=== PATIENT | male | born 1960 | race Caucasian/White ===

== ENCOUNTER → 2017-11-24 12:45 | Outpatient (CLI) | payer BC, SELFPAY ==
--- NOTE | 2017-11-24 12:53 | CT_ITS ---
EXAM: CT LUNG LOW DOSE WO CONTRAST COMPARISON: 11/11/2011 HISTORY: 57-year-old male with 30 pack-year smoking history asymptomatic ORDERING PHYSICIAN: Pavel Rios MD PATIENT AGE: 57 years TECHNIQUE: The exam was performed on a GE Light Speed [address] scanner using 2.95 mGy CTDI. A low dose helical CT CHEST was performed on a multi-detector scanner The LDCT was performed in a facility that meets the criteria for the screening program. Data regarding this exam was submitted to ACR which is an approved registry. The order for this exam indicates that it came as a result of a lung cancer screening counseling shard decision-making visit that included all the elements required of such a visit including smoking cessation. The radiologist interpreting this exam meets the [facility] criteria for the LDCT lung cancer screening program. The exam is reported using the Lung-RADS classification scale and reported to the ACR registry. NOTE: This study was performed for the specific purposes of lung cancer screening and is not an alternative to diagnostic chest CT. RADIATION DOSE: CTDI vol(CT dose Index-volume) = 2.95mG DLP (Dose Length Product) = 116.56 mGcm FINDINGS: 4 mm right apical nodule unchanged, 4 mm nodule right upper lobe anteriorly unchanged, 4 mm nodule central right upper lobe anteriorly unchanged, 4 mm subpleural nodule right middle lobe laterally unchanged. 3 mm nodules in the left upper lobe unchanged, 3 mm nodule left upper lobe laterally unchanged, 3 mm nodule left upper lobe centrally unchanged, 4 mm nodule left lower lobe anteriorly unchanged. No new nodules evident. Upper abdominal images show cholelithiasis IMPRESSION: 1. Lung RADS Category: 2, benign 2. Other findings: Cholelithiasis RECOMMENDATIONS: 12 month screening LDCT
== END ==
PROVIDERS: Family Provider Family Medicine; PCP Family Medicine; Visit Provider Family Medicine
DX: Z87.891 Personal history of nicotine dependence (principal); Z12.2 Encounter for screening for malignant neoplasm of respiratory organs

== ENCOUNTER → 2018-12-02 13:09 | Outpatient (CLI) | payer BC, SELFPAY ==
--- NOTE | 2018-12-02 13:12 | CT_ITS ---
EXAM: CT LUNG LOW DOSE WO CONTRAST COMPARISON: None HISTORY: 1 pack per day x30 years ago 30 pack-year. Currently smoking. TECHNIQUE: The exam was performed on a GE Light Speed [address] scanner using 3.0 mGy CTDI. A low dose helical CT CHEST was performed on a multi-detector scanner. All CT scans at this facility use one or more dose reduction techniques, viz.: automated exposure control, ma/kV adjustment per patient size (including targeted exams where dose is matched to indication, i.e. head) or iterative reconstruction technique. The LDCT was performed in a facility that meets the criteria for the screening program. Data regarding this exam was submitted to ACR which is an approved registry. The order for this exam indicates that it came as a result of a lung cancer screening counseling shard decision-making visit that included all the elements required of such a visit including smoking cessation. The radiologist interpreting this exam meets the [facility] criteria for the LDCT lung cancer screening program. The exam is reported using the Lung-RADS classification scale and reported to the ACR registry. NOTE: This study was performed for the specific purposes of lung cancer screening and is not an alternative to diagnostic chest CT. RADIATION DOSE: CTDI vol(CT dose Index-volume) = 2.9. MGy DLP (Dose Length Product) = 108.26 mGy-cm FINDINGS: No suspicious lung mass or nodule.. No significant changes prior study. Follow-up in 12 months recommended. Mild emphysematous changes bilaterally again noted. Minimal linear scarring at medial aspect of minor fissure and at posterior sulcus on right more than left. RIGHT LUNG ... A tiny 4 mm apical calcified granuloma axial image 19. Not of concern. ... Small barely evident less than 4 mm nodule anterior right apex axial image 28. Stable. Period can be followed. Unimpressive. ... Small 4 mm nodule anterior RUL axial image 44.-just superior to the minor fissure. This is been present since 2012 CT chest with no significant change. Supporting benign nature. Small subpleural 4 mm nodule axial image 58 appear stable . LEFT LUNG. Tiny 3 mm nodule anterior left apex stable ... Stable tiny 3 mm likely partially calcified granuloma axial slice 39 periphery L UL left midlung. .... Tiny less than 4 mm nodule at the lingula L UL axial slice 40 sagittal 75. PLEURA : Only scattered areas of scant pleural thickening and scarring Airways. Upper normal thickness centrally dictated towards infrahilar areas. MEDIASTINUM No significant hilar or mediastinal adenopathy. Small Calcified hilar nodes most evident on the left reflect granulomatous disease. The heart is normal in size. A right coronary artery calcifications and/or stent. Limited views Uppermost abdomen unremarkable today. Right lobe of thyroid may be slightly elongated. . IMPRESSION: 1. . 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 Most likely benign appearing findings Follow-up screening CT chest one year recommended. Report . RECOMMENDATIONS: 12 month monthd LDCT follow-up
== END ==
PROVIDERS: PCP Family Medicine; Visit Provider Family Medicine
DX: Z12.2 Encounter for screening for malignant neoplasm of respiratory organs (principal); Z87.891 Personal history of nicotine dependence

== ENCOUNTER → 2020-05-01 12:54 | Outpatient (POV) | payer BC, SELFPAY | PROVIDERS: Visit Provider Dermatology | DX: Z00.00 Encounter for general adult medical examination without abnormal findings (principal) ==

== ENCOUNTER → 2020-12-13 13:52 | Outpatient (CLI) | payer BC, SELFPAY ==
--- NOTE | 2020-12-13 13:57 | CT_ITS ---
PROCEDURE: CT LUNG SCREENING CLINICAL INDICATION: HX OF NICOTINE DEPENDENCE Current smoker, 1 pack per day times 30+ years COMPARISON: CT LUNGSCREEN CT lung screening from 11/24/[address] lung screening from 12/02/2018 TECHNIQUE: The exam was performed on a [employer] Light Speed [address] scanner using 2.90 mGy CTDI. A low dose helical CT CHEST was performed on a multi-detector scanner. All CT scans at the facility use one or more dose reduction, viz: automated exposure control, ma/kV adjustment per patient size (including targeted exams where dose is matched to indication, i.e. head), or iterative reconstruction technique. The LDCT was performed in a facility that meets the criteria for the screening program. Data regarding this exam was submitted to ACR which is an approved registry. The order for this exam indicates that it came as a result of a lung cancer screening counseling shard decision-making visit that included all the elements required of such a visit including smoking cessation. The radiologist interpreting this exam meets the CMS criteria for the LDCT lung cancer screening program. The exam is reported using the Lung-RADS classification scale and reported to the ACR registry. NOTE: This study was performed for the specific purposes of lung cancer screening and is not an alternative to diagnostic chest CT. RADIATION DOSE: CTDI vol(CT dose Index-volume) = 2.90mG DLP (Dose Length Product) = 116 mGcm FINDINGS: There are scattered tiny areas of architectural change. There are several tiny benign granulomas. Small pulmonary nodules are unchanged. There are no new pulmonary nodules. OTHER FINDINGS: There are scattered atherosclerotic calcifications in the coronary arteries. There is no thoracic suspicious thoracic adenopathy. Mild, approximately 10 degree, curvature of the thoracic spine which may be positional. There are scattered degenerative changes in the skeleton and scattered benign bone islands. IMPRESSION: Lung-RADS Category 2 Benign Appearance or Behavior Follow-up: CT screening chest 1 year 12 month LDCT follow-up Dictated by: Rhonda Smith MD 12/14/2020 09:15 Rhonda Smith MD in [place] 12/14/2020 09:15
== END ==
PROVIDERS: PCP Family Medicine; Visit Provider Physician Assistant
DX: Z87.891 Personal history of nicotine dependence (principal); Z12.2 Encounter for screening for malignant neoplasm of respiratory organs
CPT/HCPCS: 71271

== ENCOUNTER → 2021-01-04 13:12 | Outpatient (CLI) | payer BC, SELFPAY ==
--- NOTE | 2021-01-04 13:15 | XR_ITS ---
PROCEDURE: XR ANKLE RT MIN 3V CLINICAL INDICATION: PAIN IN RT ANKLE AND JOINT OF RT FOOT COMPARISON: No exams were available for comparison FINDINGS: There is an old distal fibular shaft fracture and suspected old distal tibial fracture is well.. Calcification is present between the distal aspect of the tibia and fibula at the area of the fracture. Severe osteoarthritic changes are present at the ankle joint. Subchondral lucency is noted at the talar dome with some cortical regularity. The lucency may be related to subchondral cystic change. There is some minimal flattening of the talar dome. IMPRESSION: Severe osteoarthritic changes of the ankle with an old distal fibular and tibial fracture Dictated by: Dakota Cardoso MD 01/04/2021 14:16 Dakota Cardoso MD in [place] 01/04/2021 14:16
== END ==
PROVIDERS: PCP Family Medicine; Visit Provider Family Medicine
DX: M25.571 Pain in right ankle and joints of right foot (principal)
CPT/HCPCS: 73610

== ENCOUNTER → 2021-01-09 14:20 | Outpatient (CLI) | payer BC, SELFPAY ==
--- NOTE | 2021-01-09 14:24 | XR_ITS ---
PROCEDURE: XR ANKLE RT MIN 3V CLINICAL INDICATION: RT ANKLE PAIN COMPARISON: CR XR ANKLE RT MIN 3V from 01/04/2021 FINDINGS: No change old right distal fibular fracture an old distal tibial fracture with calcification of the syndesmosis distally. Severe osteoarthritic changes are present involving the talar dome. No acute fracture or dislocation. There is cortical irregularity of the talar dome as previously described. IMPRESSION: Overall no change in the severe osteoarthritis of the ankle with an old distal fibular fracture and persistent subchondral lucency of the talar dome Dictated by: Dakota Cardoso MD 01/09/2021 15:37 Dakota Cardoso MD in [place] 01/09/2021 15:37
== END ==
PROVIDERS: PCP Physician Assistant; Visit Provider Physician Assistant
DX: S99.911A Unspecified injury of right ankle, initial encounter (principal)
CPT/HCPCS: 73610

== ENCOUNTER 2021-01-11 16:02 | Outpatient (RCR) | payer BC, SELFPAY | END 2021-01-11 16:48 | disposition home or self-care (01) | LOC: PT 16:02 | PROVIDERS: Visit Provider Physician Assistant | DX: M25.571 Pain in right ankle and joints of right foot (principal); M19.071 Primary osteoarthritis, right ankle and foot | CPT/HCPCS: 97760 ==

== ENCOUNTER → 2021-03-12 15:39 | Outpatient (CLI) | payer BC, SELFPAY ==
--- NOTE | 2021-03-12 15:49 | XR_ITS ---
PROCEDURE: XR ANKLE WT BEARING RT MIN 3V CLINICAL INDICATION: ankle pain COMPARISON: CR XR ANKLE RT MIN 3V from 01/04/2021 CR XR ANKLE RT MIN 3V from 01/09/2021 FINDINGS: Old distal fibular shaft fracture is once again noted with ossification of the interosseous region of the distal tib fib. Also noted cortical thickening with lobulation of the distal tibia consistent with old fracture. There are severe osteoarthritic changes the ankle with loss of joint space and osteophyte formation. Bony hypertrophic changes are present at the tarsal metatarsal junction dorsally IMPRESSION: Old distal tib fib fracture with severe osteoarthritis of the right ankle Dictated by: Dakota Cardoso MD 03/12/2021 17:15 Dakota Cardoso MD in [place] 03/12/2021 17:15
== END ==
PROVIDERS: PCP Nurse Practitioner; Visit Provider Physician Assistant
DX: M25.571 Pain in right ankle and joints of right foot (principal); M79.671 Pain in right foot
CPT/HCPCS: 73610

== ENCOUNTER → 2021-03-19 13:44 | Outpatient (CLI) | payer BC, SELFPAY ==
--- NOTE | 2021-03-19 13:49 | XR_ITS ---
PROCEDURE: XR FOOT WT BEARING LT 3V CLINICAL INDICATION: pain COMPARISON: No exams were available for comparison FINDINGS: No fracture or dislocation. No lytic or blastic change. There is normal mineralization. The joint spaces are well-preserved. No significant degenerative/arthritic changes. No erosive changes evident. Other findings:There is a small calcaneal spur along the plantar surface of the calcaneus IMPRESSION: No acute findings. Dictated by: Dakota Cardoso MD 03/19/2021 14:20 Dakota Cardoso MD in [place] 03/19/2021 14:20
--- NOTE | 2021-03-19 13:49 | XR_ITS ---
PROCEDURE: XR FOOT WT BEARING RT 3V CLINICAL INDICATION: pain COMPARISON: CR XR ANKLE WT BEARING RT MIN 3V from 03/12/2021 FINDINGS: Osteoarthritic changes are present at the ankle joint which are severe in nature. Prominent osteoarthritic changes are present at the tarsal metatarsal junction with prominent bony spurring anteriorly. At the distal aspect of the 2nd 3rd and 4th metatarsals there is some plantar and lateral angulation of the heads of the metatarsals which could be due to old fractures. No acute fracture or dislocation. IMPRESSION: Degenerative changes as described above. Possible old fractures at the heads of the 2nd 3rd and 4th metatarsals Dictated by: Dakota Cardoso MD 03/19/2021 14:20 Dakota Cardoso MD in [place] 03/19/2021 14:20
== END ==
PROVIDERS: PCP Physician Assistant; Visit Provider Podiatrist
DX: M79.672 Pain in left foot (principal); M79.671 Pain in right foot
CPT/HCPCS: 73630

== ENCOUNTER → 2021-08-12 15:21 | Outpatient (CLI) | payer BC, SELFPAY ==
--- NOTE | 2021-08-12 15:26 | XR_ITS ---
PROCEDURE: XR RIBS RT MIN 3V W CXR1V CLINICAL INDICATION: RT RIB PAIN COMPARISON: CT CT LUNG SCREENING from 12/13/2020 FINDINGS: Multiple views of the right ribs show no obvious fracture. No lytic or blastic change. Consider follow-up in 7-[address] with 3D reformats if pain persists Frontal view of the chest shows no acute finding IMPRESSION: Negative right ribs Dictated by: Dakota Cardoso MD 08/12/2021 16:09 Dakota Cardoso MD in [place] 08/12/2021 16:09
== END ==
PROVIDERS: PCP Family Medicine; Visit Provider Nurse Practitioner
DX: R07.81 Pleurodynia (principal)
CPT/HCPCS: 71101

== ENCOUNTER → 2021-10-10 14:33 | Outpatient (CLI) | payer BC, SELFPAY ==
--- NOTE | 2021-10-10 14:37 | CT_ITS ---
PROCEDURE: CT HEAD/BRAIN WO CON CLINICAL INDICATION: CONCUSSION W/ LOSS OF CONSCIOUSNESS, INITIAL ENCOUNTER COMPARISON: No exams were available for comparison TECHNIQUE: Axial images obtained. All CT scans at the facility use one or more dose reduction, viz: automated exposure control, ma/kV adjustment per patient size (including targeted exams where dose is matched to indication, i.e. head), or iterative reconstruction technique. FINDINGS: There is a nondisplaced linear skull fracture extending from the left anterior frontal bone posteriorly through the frontal and parietal bone medially with some minimal diastasis of the posterior aspect of the sagittal suture at the parietal region with a nondisplaced fracture also involving the medial aspect of the right parietal bone. There is a small amount of subarachnoid blood in the left frontal area medially best seen on image number 53 through 58 series 3. There may be a small amount of blood in the interhemispheric fissure anteriorly. No other areas of bleeding apparent. No hydrocephalus. No midline shift or mass effect. Low-density changes are present in the inferior aspect of the left frontal lobe. Some of this could be due to partial volume averaging artifact. However, underlying edema is also considered. Soft tissue swelling is present in the left frontal area IMPRESSION: Nondisplaced linear skull fracture involves the left frontal parietal and right parietal bone with minimal diastasis of the sagittal suture posteriorly Small amount subarachnoid blood in the left frontal area with questionable small amount blood in the interhemispheric fissure Suspect small amount of brain parenchymal edema in the left frontal lobe inferiorly. Dictated by: Dakota Cardoso MD 10/10/2021 15:33 Dakota Cardoso MD in [place] 10/10/2021 15:33
== END ==
PROVIDERS: PCP Physician Assistant; Visit Provider Physician Assistant
DX: S06.0X9A Concussion with loss of consciousness of unspecified duration, initial encounter (principal)
CPT/HCPCS: 70450

== ENCOUNTER → 2021-11-06 15:51 | Outpatient (CLI) | payer BC, SELFPAY ==
[2021-11-06 17:44] LABS: Adenovirus,PCR Not Detected (NotDetected); Bordetella Pertussis Not Detected (NotDetected); Chlamydophila Pneumoniae, PCR Not Detected (NotDetected); Coronavirus 229E Not Detected (NotDetected); Coronavirus NL63 Not Detected (NotDetected); Coronavirus OC43 Not Detected (NotDetected); Coronovirus HKU1,PCR Not Detected (NotDetected); Human Metapneumovirus Not Detected (NotDetected); Influenza A, PCR Not Detected (NotDetected); Influenza AH1, 2009 Not Detected (NotDetected); Influenza AH1, PCR Not Detected (NotDetected); Influenza AH3,PCR Not Detected (NotDetected); Influenza B, PCR Not Detected (NotDetected); Mycoplasma Pneumoniae, PCR Not Detected (NotDetected); Parainfluenza 1, PCR Not Detected (NotDetected); Parainfluenza 2, PCR Not Detected (NotDetected); Parainfluenza 3, PCR Not Detected (NotDetected); Parainfluenza 4, PCR Not Detected (NotDetected); Respiratory Syncytial Virus Not Detected (NotDetected); Rhinovirus/Enterovirus Not Detected (NotDetected)
[2021-11-06 18:12] LABS: Basophils % 0.7 % (0.1-2.0); Eosinophils % 0.8 % (0.1-12.0); Hematocrit 42.9 % (42.0-52.0); Hemoglobin 14.5 g/dL (14.1-18.0); Lymphocytes # 0.8 K/mm3 (0.7-4.5); Lymphocytes % 18.4 % (10-50); Mean Corpuscular HGB Conc 33.7 g/dL (31.8-35.4); Mean Corpuscular Hemoglobin 33.9 pg (27.0-31.2); Mean Corpuscular Volume 100.7 fl (80-94); Mean Platelet Volume 8.6 fl (7.4-10.4); Monocytes # 0.7 K/mm3 (0.1-1.0); Neutrophils # 2.9 K/mm3 (1.8-7.8); Neutrophils % 64.1 % (37.0-80.0); Platelet Count 313 K/mm3 (142-424); Red Blood Count 4.26 M/mm3 (4.60-6.20); White Blood Count 4.5 K/mm3 (4.8-10.8)
[2021-11-06 19:58] LABS: Coronavirus 19, PCR Detected (NotDetected)
== END ==
PROVIDERS: PCP Physician Assistant; Visit Provider Physician Assistant
DX: U07.1 COVID-19 (principal)
CPT/HCPCS: 36415; 85025; 87581; 87632; 87798; C9803; U0003; U0005

== ENCOUNTER → 2021-12-11 15:26 | Outpatient (CLI) | payer BC, SELFPAY | PROVIDERS: Visit Provider Nurse Practitioner | DX: Z20.822 Contact with and (suspected) exposure to COVID-19 (principal) | CPT/HCPCS: C9803; U0003; U0005 ==

== ENCOUNTER → 2022-01-17 13:51 | Outpatient (CLI) | payer BC, SELFPAY ==
--- NOTE | 2022-01-17 13:53 | XR_ITS ---
FINAL REPORT CLINICAL HISTORY: right ankle pain COMPARISON: March 12, 2021 FINDINGS: RIGHT ANKLE: Three views of the right ankle were obtained. There is healed fracture deformity of the distal fibula diaphysis. There is prominent periosteal reaction of the lateral aspect of the distal tibia probably due to prior trauma. There is marked narrowing of the mortise. 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 There is moderate soft tissue swelling about the ankle. IMPRESSION: Healed fracture of the distal fibula. 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 Reviewed, Interpreted and Dictated by Sesar Berrios MD Transcribed by Edgar Real Authenticated by Sesar Berrios MD on 01/17/2022 03:12:08 PM [facility]
== END ==
PROVIDERS: PCP Physician Assistant; Visit Provider Orthopaedic Surgery
DX: M25.571 Pain in right ankle and joints of right foot (principal); M25.471 Effusion, right ankle
CPT/HCPCS: 73610

== ENCOUNTER → 2022-04-07 12:54 | Outpatient (CLI) | payer BC, SELFPAY ==
--- NOTE | 2022-04-07 13:18 | XR_ITS ---
FINAL REPORT CLINICAL HISTORY: WHEEZING,COUGH COMPARISON: August 12, 2021 FINDINGS: Two views of the chest were obtained. The heart size and pulmonary vascularity are within normal limits. The mediastinum is normal. The lungs are somewhat hyperinflated consistent with COPD. There is mild bibasilar atelectasis or scarring. There is no pneumothorax. There are postoperative changes at the right humeral head. IMPRESSION: Mild bibasilar atelectasis or scarring. Reviewed, Interpreted and Dictated by Erasto Sauer III, MD Transcribed by Leah Bethea Authenticated and . [facility]
[2022-04-07 14:06] LABS: Alanine Aminotransferase 25 U/L (12-78); Albumin Level 4.2 g/dl (3.5-5.0); Albumin/Globulin Ratio 1.8 (1.1-1.8); Alkaline Phosphatase 100 U/L (38-126); Anion Gap 14.8 mEq/L (5-15); Aspartate Amino Transferase 35 U/L (17-59); Bilirubin,Total 0.7 mg/dl (0.2-1.3); Blood Urea Nitrogen 9 mg/dl (9-20); Calcium 9.3 mg/dl (8.4-10.2); Carbon Dioxide 26 mmol/L (22.0-30.0); Chloride 83 mmol/L (98-107); Estimated Glomerular Filt Rate 115 ml/min (>60); GFR (African American) 140 ML/MIN (>60); Globulin 2.4 g/dL (1.3-3.2); Glucose 101 mg/dl (74-100); Potassium 3.8 mmoL/L (3.5-5.1); Sodium 120 mmol/L (136-145); Total Protein,Serum 6.6 g/dl (6.3-8.2)
[2022-04-07 14:15] LABS: NT Pro Brain Natriuretic Pep. 47.8 pg/mL (0-125)
[2022-04-07 14:36] LABS: Prostate Specific Ag Screen 0.2 ng/ml (0.0-4.0)
== END ==
PROVIDERS: PCP Physician Assistant; Visit Provider Nurse Practitioner
DX: R06.2 Wheezing (principal); R05.9 Cough, unspecified; R60.0 Localized edema; Z12.5 Encounter for screening for malignant neoplasm of prostate
CPT/HCPCS: 36415; 71046; 80053; 83880; G0103

== ENCOUNTER → 2022-04-11 13:37 | Outpatient (CLI) | payer BC, SELFPAY ==
--- NOTE | 2022-04-11 | CA_ITS ---
APPROVED REPORT EXAM: Comprehensive 2D, Doppler, and color-flow Echocardiogram Setter Machine: Lu Pantoja CRT Ht: 6 ft 1 in Wt: 270lbs BSA: 2.44 BP: 144/84 mmHg Indications: Shortness of Breath, Obesity, Peripheral Edema, Hyperlipidemia, Hypertension/HDD 2D Dimensions Aortic Root 2.11 cm LA Volume 43.90 mL LA Volume Index 18.00 mL/m2 (M/F) 16-34 M-Mode Dimensions RVDd 2.75 cm (0.9-2.6) LA Diam 4.47 cm (1.9-4.0) LVDd 5.35 cm (3.5-5.7) Ao Diam 4.00 cm (2.0-3.7) LVDs 3.64 cm (3.5-5.7) IVSd 1.61 cm (0.6-1.1) PWd 0.74 cm (0.6-1.1) EF (Teich) 59.60% FS 32.00% EDV (Teich) 138.30 mL TAPSE 3.26 (<1.7) ESV (Teich) 55.90 mL LV Diastology E Decel Time 117.00 (160-240 msec) E/A Ratio 0.99 MED E' 8.90 (< 7 cm/sec) MED A' 11.10 cm/s E'/MED E' Ratio 9.96 (>14) LAT E' 13.40 (<10 cm/sec) LAT A' 22.20 cm/s E/LAT E' Ratio 6.61 (>14) Aortic Valve AO Peak GR. 10.80 mmHg Mitral Valve MV A Velocity 90.00 (40-130 cm/s) E/A Ratio 0.99 MV Decel. Time 117.00 (160-240 ms) Tricuspid Valve TR P. Velocity 135.00 cm/s RAP Estimate 10.00 mmHg RVSP 17.30 mmHg Left Ventricle Left atrium is normal size, left ventricle is normal size, there is no concentric left ventricular hypertrophy, estimated ejection fraction 55% with no regional wall motion abnormality, diastolic parameters are within normal range. Right Ventricle Right atrium and right ventricle are normal size and contractility. Aortic Valve Aortic valve is minimally thickened and fibrosed there is no aortic stenosis or aortic insufficiency. Mitral Valve Mitral valve grossly normal, there is trace mitral regurgitation. Tricuspid Valve Tricuspid grossly normal, there is trace tricuspid regurgitation, tricuspid regurgitation jet velocity is inadequate for calculation of the right ventricular systolic pressure. Pulmonic Valve Pulmonic valve is poorly visualized. Great Vessels Aortic root is normal size. Inferior vena cava normal size with normal inspiratory collapse. Pericardium No significant pericardial effusion noted. Conclusion 1. Normal left ventricular size preserved left ventricular systolic function, estimated ejection fraction 55% with no regional wall motion abnormality, diastolic parameters are within normal range. 2. Trace mitral and tricuspid regurgitation. 3. No significant pericardial effusion. 4. Inferior vena cava is normal size with normal inspiratory collapse. Electronically signed by : Jez Rivera MD 04/11/2022 14:50:47
== END ==
PROVIDERS: PCP Physician Assistant; Visit Provider Nurse Practitioner
DX: R60.0 Localized edema (principal)
CPT/HCPCS: 93306

== ENCOUNTER → 2022-06-04 13:49 | Outpatient (CLI) | payer BC, SELFPAY ==
--- NOTE | 2022-06-04 13:55 | CT_ITS ---
FINAL REPORT CLINICAL HISTORY: CONTUSION OF FACE. small abrasion on his forehead. COMPARISON: 10/10/2021 FINDINGS: Axial images of the head were obtained without contrast. This study was performed with techniques to keep radiation doses as low as reasonably achievable (ALARA). Individualized dose reduction techniques using automated exposure control or adjustment of mA and/or kV according to the patient's size were employed. There has been interval resolution of the right frontal subarachnoid hemorrhage. No new hemorrhage is identified. The ventricular size is within normal limits. There is no evidence of shift of the midline structures. No abnormal extra axial fluid collection is identified. Again identified is the left frontal and parietal skull fractures. The appearance of the fracture is now subacute. No new bony abnormality is identified. IMPRESSION: Interval resolution of the right frontal subarachnoid hemorrhage. Subacute left frontal and parietal skull fractures. Reviewed, Interpreted and Dictated by Erasto Sauer III, MD Transcribed by Keiko Solorio Authenticated and [facility]
--- NOTE | 2022-06-04 13:55 | CT_ITS ---
FINAL REPORT TECHNIQUE: Axial CT images of the face were obtained without contrast. Coronal reformatted images were also obtained. This study was performed with techniques to keep radiation doses as low as reasonably achievable, (ALARA). Individualized dose reduction techniques using automated exposure control or adjustment of mA and/or kV according to the patient''s size were employed. CLINICAL HISTORY: CONTUSION OF FACE FINDINGS: There is no evidence of fracture.The orbits are intact.The globes are intact. There is mucosal thickening in multiple sinuses. No soft tissue mass is seen. IMPRESSION: No fracture or acute bony abnormality identified. Reviewed, Interpreted and Dictated by Erasto Sauer III, MD Transcribed by Keiko Solorio Authenticated and [facility]
== END ==
PROVIDERS: PCP Physician Assistant; Visit Provider Family Medicine
DX: S00.83XA Contusion of other part of head, initial encounter (principal)
CPT/HCPCS: 70450; 70486

== ENCOUNTER 2022-09-05 14:28 | Outpatient (RCR) | payer BC, SELFPAY | END 2022-09-05 15:30 | disposition home or self-care (01) | LOC: PT 14:28 | PROVIDERS: Visit Provider Family Medicine | DX: M79.671 Pain in right foot (principal); S99.921D Unspecified injury of right foot, subsequent encounter | CPT/HCPCS: 97760 ==

== ENCOUNTER → 2022-11-05 12:39 | Outpatient (CLI) | payer BC, OTHER, SELFPAY ==
--- NOTE | 2022-11-05 13:18 | PC.NURSE ---
PFT completed without incident. Albuterol 0.083% given, per protocol, Pt tolerated treatment well.
== END ==
PROVIDERS: PCP Physician Assistant; Visit Provider Physician Assistant
DX: R05.3 Chronic cough (principal); J44.9 Chronic obstructive pulmonary disease, unspecified
CPT/HCPCS: 94060; 94726; 94729

== ENCOUNTER → 2023-03-24 12:43 | Outpatient (CLI) | payer BC, SELFPAY ==
--- NOTE | 2023-03-24 12:43 | CT_ITS ---
FINAL REPORT CLINICAL HISTORY: lung cancer screening current smoker, 1 ppd x 30 years COMPARISON: November 2020 FINDINGS: Low-Dose Chest CT CTDI vol (mGy): 2.90 DLP (mGy-cm): 111.51 Axial images were obtained from the lung apex to the mid abdomen by computed tomography. Low-dose protocol was utilized. FINDINGS: CHEST: There is no axillary adenopathy. There is no hilar or mediastinal adenopathy. The heart is proper size. There is mild coronary artery calcification. There is no pericardial or pleural effusion. Limited images of the upper abdomen are unremarkable. Lung window images demonstrate a tiny noncalcified nodule right upper lobe measuring 3 mm on image 20. A 3 mm nodule right upper lobe on image 44 is again seen. There is a 3 mm nodule in the left upper lobe on image 36.. These are all stable. There is no new mass or pulmonary nodule. IMPRESSION: Lung RADS category 2. Recommend 12 month follow-up low-dose chest CT. Reviewed, Interpreted and Dictated by Sesar Berrios MD Transcribed by Edgar Real Authenticated and [facility]
== END ==
PROVIDERS: PCP Physician Assistant; Visit Provider Internal Medicine Pulmonary Disease
DX: Z87.891 Personal history of nicotine dependence (principal); Z12.2 Encounter for screening for malignant neoplasm of respiratory organs
CPT/HCPCS: 71271

== ENCOUNTER 2023-06-10 15:34 | Outpatient (RCR) | payer BC, SELFPAY | END 2023-06-10 16:30 | disposition home or self-care (01) | LOC: PT 15:34 | PROVIDERS: Visit Provider Physician Assistant | DX: M19.071 Primary osteoarthritis, right ankle and foot (principal) ==

== ENCOUNTER → 2023-07-27 15:57 | Outpatient (CLI) | payer BC, SELFPAY ==
[2023-07-27 16:08] LABS: Microscopic, Urine URINE MICROSCOPIC (MICROSCOPIC)
[2023-07-27 16:49] LABS: Albumin Level 4.4 g/dl (3.5-5.0); Anion Gap 11.4 mEq/L (5-15); Blood Urea Nitrogen 12 mg/dl (9-20); Calcium 9.1 mg/dl (8.4-10.2); Carbon Dioxide 28 mmol/L (22.0-30.0); Chloride 96 mmol/L (98-107); Estimated Glomerular Filt Rate 86 ml/min (>60); GFR (African American) 104 ML/MIN (>60); Glucose 105 mg/dl (74-100); Phosphorous 4.5 mg/dl (2.5-4.5); Potassium 4.4 mmoL/L (3.5-5.1); Sodium 131 mmol/L (136-145)
[2023-07-27 16:54] LABS: Appearance,Urine CLEAR (Clear); Bilirubin,Urine Negative (Negative); Blood, Urine Negative (Negative); Color,Urine YELLOW (Yellow); Glucose,Urine (UA) Negative (Negative); Ketones,Urine Negative (Negative); Leukocyte Esterase,Urine Negative (Negative); Nitrate,Urine Negative (Negative); PH,Urine 7.5 (5.0-8.5); Protein,Urine Negative (Negative)
[2023-07-27 17:01] LABS: Intact Parathyroid Hormone 39.7 pg/mL (7.5-53.5)
[2023-07-27 17:04] LABS: Creatinine,Urine Random 81 mg/dL (Not Estab.)
[2023-07-27 17:28] LABS: 25-OH Vitamin D, Total 50.2 ng/mL (30-100)
[2023-07-27 18:10] LABS: Basophils # 0.1 K/mm3 (0-0.2); Basophils % 0.9 % (0.1-2.0); Eosinophils # 0.2 K/mm3 (0.0-0.4); Eosinophils % 3.1 % (0.1-12.0); Hematocrit 49.3 % (42.0-52.0); Hemoglobin 16.1 g/dL (14.1-18.0); Lymphocytes # 1.6 K/mm3 (0.7-4.5); Lymphocytes % 22.3 % (10-50); Mean Corpuscular HGB Conc 32.6 g/dL (31.8-35.4); Mean Corpuscular Hemoglobin 33.2 pg (27.0-31.2); Mean Corpuscular Volume 101.9 fl (80-94); Mean Platelet Volume 9.1 fl (7.4-10.4); Monocytes # 0.7 K/mm3 (0.1-1.0); Monocytes % 10.4 % (1.7-9.3); Neutrophils # 4.5 K/mm3 (1.8-7.8); Neutrophils % 63.4 % (37.0-80.0); Platelet Count 300 K/mm3 (142-424); Red Blood Count 4.84 M/mm3 (4.60-6.20); Red Cell Distribution Width 13.5 % (11.5-17.5); White Blood Count 7.1 K/mm3 (4.8-10.8)
[2023-07-29 10:47] LABS: Sodium, Urine 71 mmol/L (Not Estab.)
[2023-07-30 20:56] LABS: Osmolality, Urine 443 mOsmol/kg (.)
== END ==
PROVIDERS: PCP Physician Assistant; Visit Provider Internal Medicine Nephrology
DX: E87.1 Hypo-osmolality and hyponatremia (principal); E55.9 Vitamin D deficiency, unspecified; E66.9 Obesity, unspecified; Z68.37 Body mass index [BMI] 37.0-37.9, adult
CPT/HCPCS: 36415; 80069; 81001; 82306; 82570; 83930; 83935; 83970; 84155; 84300; 85025

== ENCOUNTER → 2023-08-13 15:15 | Outpatient (CLI) | payer BC, SELFPAY ==
[2023-08-13 16:30] LABS: Albumin Level 4.6 g/dl (3.5-5.0); Anion Gap 13.7 mEq/L (5-15); Blood Urea Nitrogen 7 mg/dl (9-20); Calcium 9.5 mg/dl (8.4-10.2); Carbon Dioxide 27 mmol/L (22.0-30.0); Chloride 91 mmol/L (98-107); Estimated Glomerular Filt Rate 115 ml/min (>60); GFR (African American) 139 ML/MIN (>60); Glucose 101 mg/dl (74-100); Phosphorous 4.3 mg/dl (2.5-4.5); Potassium 4.7 mmoL/L (3.5-5.1); Sodium 127 mmol/L (136-145); Uric Acid 3.8 mg/dl (3.5-8.5)
[2023-08-15 08:15] LABS: Sodium, Urine 66 mmol/L (Not Estab.)
[2023-08-19 04:19] LABS: Osmolality, Urine 310 mOsmol/kg (.)
== END ==
PROVIDERS: PCP Physician Assistant; Visit Provider Internal Medicine Nephrology
DX: E87.1 Hypo-osmolality and hyponatremia (principal)
CPT/HCPCS: 36415; 80069; 82533; 83930; 83935; 84300; 84443; 84550

== ENCOUNTER 2023-10-03 14:41 | Emergency (ER) | payer BC, SELFPAY ==
[2023-10-03 15:15] VITALS: BP 134/97; PULSE 79; RESP 20; TEMP 37.1; O2SAT 95; BMI 39.6
--- NOTE | 2023-10-03 15:47 | EXP.UTC ---
Discharge Plan Disposition Patient Disposition: Home, Self-Care Condition: Good Prescriptions Prescriptions: New amoxicillin-pot clavulanate [Augmentin] 500-125 mg tablet 1 tab PO Q12H Qty: 20 0RF fluticasone propionate [Allergy Relief (fluticasone)] 50 mcg/actuation spray,suspension 1 spray intranasal DAILY Qty: 16 0RF Rx Instructions: administer into each nostril No Action tramadol 50 mg tablet 50 mg PO Q8H PRN (Reason: pain) Qty: 30 0RF famotidine 20 mg tablet 20 mg PO HS Qty: 30 2RF atorvastatin 40 mg tablet 40 mg PO losartan-hydrochlorothiazide 50-12.5 mg tablet 1 tab PO Patient Comments: TAKE 1 TABLET BY MOUTH ONCE DAILY meloxicam 15 mg tablet 15 mg PO Patient Comments: TAKE 1 TABLET BY MOUTH ONCE DAILY diclofenac sodium 1 % gel TOPICAL Referrals Follow up/Referrals: Mari Sheppard PA [Primary Care Provider] - See instructions Clinical Impressions Clinical Impression: Acute suppur right otitis media w/o spontan rupture tympanic membrane Qualifiers: Recurrence: not specified as recurrent Qualified Code(s): H66.001 - Acute suppurative otitis media without spontaneous rupture of ear drum, right ear Instructions Patient Instructions: Middle Ear Infection Discharge ED Provider: Jory Delong [facility] General Stated complaint: right ear pain Mode of Arrival: Ambulatory Source of Information: Patient Limitations: No Limitations Time Seen by Provider: 10/03/23 15:47 Description of Symptoms (Recalled from Triage Doc. by RN): PATIENT STATES HE HAD PRESSURE TO BILATERAL EARS YESTERDAY AND HAS DECREASED HEARING TO RIGHT EAR TODAY HEENT Symptoms (Recalled from RN notes): Yes Resp Symptoms (Recalled from RN notes): No Skin Symptoms (Recalled from RN notes): No MS Symptoms (Recalled from RN notes): No Functional Status (Recalled from RN notes): WNL History of Present Illness Provider Complaint: Pt reports that he often has ringing in his ears and yesterday it sounded like crickets. His had him to put olive oi Related Data Home Medications Medication Instructions Recorded Confirmed atorvastatin 40 mg tablet 40 mg PO 01/29/21 04/01/23 diclofenac sodium 1 % topical gel g topical 01/29/21 04/01/23 losartan 50 mg-hydrochlorothiazide 1 tab PO 01/29/21 04/01/23 12.5 mg tablet meloxicam 15 mg tablet 15 mg PO 01/29/21 04/01/23 Previous Rx's Medication Instructions Recorded tramadol 50 mg tablet 50 mg PO Q8H PRN pain #30 tabs 04/18/22 famotidine 20 mg tablet 20 mg PO HS #30 tabs 04/22/23 amoxicillin 500 mg-potassium 1 tab PO Q12H #20 tabs 10/03/23 clavulanate 125 mg tablet (Augmentin) fluticasone propionate 50 1 spray intranasal DAILY #16 grams 10/03/23 mcg/actuation nasal spray,suspension (Allergy Relief (fluticasone)) Allergies Allergy/AdvReac Type Severity Reaction Status Date / Time No Known Allergies Allergy Verified 04/01/23 13:32 Worker's Comp Is this a Worker's Comp case?: No [facility] Disclaimer: The information contained in this section may have been updated after the patient was seen, as this information can be updated by other users. Medical History Allergies Cancer screening Chronic cough Coronary artery calcification seen on CAT scan Dyspnea on exertion GERD (gastroesophageal reflux disease) Multiple lung nodules on CT Pulmonary function studies abnormal Smoking greater than 30 pack years Surgical History History of surgery on lower extremity History of surgery on upper extremity Family History Other Diabetes Social History Smoking Status: Current every day smoker alcohol intake: never current occupational status: employed Travel in the last 8 weeks: None ROS Obtained: Yes All systems reviewed & no additional complaints ex
[2023-10-03 15:54] VITALS: BP 134/97; PULSE 79; RESP 20; TEMP 37.1; O2SAT 95
== END 2023-10-03 16:04 | disposition home or self-care (01) ==
PROVIDERS: Emergency Provider Nurse Practitioner Family; PCP Physician Assistant
DX: H66.001 Acute suppurative otitis media without spontaneous rupture of ear drum, right ear (principal); H92.03 Otalgia, bilateral; F17.210 Nicotine dependence, cigarettes, uncomplicated; K21.9 Gastro-esophageal reflux disease without esophagitis
CPT/HCPCS: 99204; 99212; G0463

== ENCOUNTER 2024-02-26 14:26 | Outpatient (RCR) | payer BC, SELFPAY | END 2024-02-26 23:59 | disposition home or self-care (01) | LOC: PT 14:26 | PROVIDERS: Visit Provider Physician Assistant | DX: M79.671 Pain in right foot (principal); R60.0 Localized edema ==

== ENCOUNTER 2024-05-03 15:00 | Outpatient (RCR) | payer BC, OTHER, SELFPAY ==
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
--- NOTE | 2024-04-05 15:43 | HMH.RHREAS ---
Rehab Reassessment Rehab OP Re-assessment Start: 03/08/24 15:46 Freq: Status: Active Protocol: Document 04/05/24 15:37 [email or web address] (Rec: 04/05/24 15:43 PHORBRIGETTE [id number]) E-signed By Dallas Lal, PT Rehab Re-assessment Subjective Subjective Pt reports he continues to have increased pain and tenderness that is worst at night. When I've been up all day and my legs swell up, I can't hardly move them and it hurts. He reports no improvement in overall functional mobility at this time. Objective Objective Notes Circumferential Measurements: R LE total is 233.9 cm which is -8.0 cm since IE. L LE total is 228.3 cm which is -3.6 cm since IE. Edema: L LE 1+ pitting edema and R LE 2+ pitting edema this date. Assessment Progress Assessment Slower Than Expected Assessment Notes Pt has shown mild decrease in overall B LE edema and no noticeable improvement in ADLs or functional mobility. He Continues to need skilled therapy services to return to prior level of function. He is a good candidate for home Lymphedema pump as he has seen no reduction in edema despite consistent daily compression garment wear, daily ther-ex including ankle pumps and circles, and no reduction in edema with prolonged elevation of his legs. Patient goals met none Goals Not Met ST/3 LT/5 Plan Plan Continue per initial POC. Frequency of Therapy 2 x/wk Duration of therapy 4 wks Time and Billing Re-Eval Time 12 Re-Eval Billing Units 1 PHYSICIAN CERTIFICATION: I certify the specified therapy services for Андрей Patel are required, authorized, and reviewed every 30 days.
== END 2024-05-03 16:10 | disposition home or self-care (01) ==
LOC: PT 15:00
PROVIDERS: Visit Provider Physician Assistant
DX: R60.0 Localized edema (principal); M79.604 Pain in right leg; M79.605 Pain in left leg
CPT/HCPCS: 97140; 97163; 97164